=== PATIENT | male | born 2005 | race Caucasian/White ===

== ENCOUNTER 2024-10-31 21:09 | Emergency (ER) | payer OTHER, SELFPAY ==
[~2024-10-31] VITALS: Ht 172.7 cm; Wt 71.8 kg
[2024-10-31 21:38] VITALS: BP 110/56; TEMP 97.8; O2SAT 97
== END 2024-10-31 22:05 | disposition home or self-care (01) ==
LOC: M ED 21:09
DX: S86.111A Strain of other muscle(s) and tendon(s) of posterior muscle group at lower leg level, right leg, initial encounter (principal); X58.XXXA Exposure to other specified factors, initial encounter; Y92.9 Unspecified place or not applicable; Y93.89 Activity, other specified; Y99.9 Unspecified external cause status; Z88.0 Allergy status to penicillin